=== PATIENT | female | born 1995 | race Two or more races ===

== ENCOUNTER 2018-02-15 17:56 | Emergency (ER) | payer SELFPAY ==
[2018-02-15] MEDS ORDERED: NS 1,000 ML IV ONE ×2 (18:07→19:04)
--- NOTE | 2018-02-15 18:10 | EDPHY ---
H & P Stated Complaint: Lightheaded then passed out;vag bleeding x 2months Time Seen by Provider: 02/15/18 18:04 HPI/ROS: CHIEF COMPLAINT: Syncope HISTORY OF PRESENT ILLNESS: The patient presents to the ED after an episode of syncope. The patient apparently was standing in the shower this occurred. The patient does report a history of dysmenorrhea. She did have a history of anemia in the past but has been off of a iron for the past year. The patient denies any pleuritic chest pain, asymmetric calf pain or swelling or additional traumatic complaints. She did chipped tooth as a result of her syncopal episode. REVIEW OF SYSTEMS: A comprehensive 10 point review of systems is otherwise negative aside from elements mentioned in the history of present illness. Source: Patient Exam Limitations: No limitations - Personal History LMP (Females 10-55): Now Current Tetanus Diphtheria and Acellular Pertussis (TDAP): Yes - Medical/Surgical History Hx Asthma: No Hx Chronic Respiratory Disease: No Hx Diabetes: No Hx Cardiac Disease: No Hx Renal Disease: No Hx Cirrhosis: No Hx Alcoholism: No Hx HIV/AIDS: No Hx Splenectomy or Spleen Trauma: No - Social History Smoking Status: Never smoked - Physical Exam Exam: General Appearance: Alert, no distress Eyes: Pupils equal and round no pallor or injection ENT, Mouth: Mucous membranes moist, small chip fracture Respiratory: There are no retractions, lungs are clear to auscultation Cardiovascular: Regular rate and rhythm Gastrointestinal: Abdomen is soft and nontender, no masses, bowel sounds normal Neurological: A&O, normal motor function, normal sensory exam, normal cranial nerves Skin: Warm and dry, no rashes Musculoskeletal: Neck is supple nontender Extremities: symmetrical, full range of motion Constitutional: Initial Vital Signs Temperature (C) 36.9 C 02/15/18 18:00 Heart Rate 99 02/15/18 18:00 Respiratory Rate 18 02/15/18 18:00 Blood Pressure 108/60 02/15/18 18:00 O2 Sat (%) 99 02/15/18 18:00 O2 Delivery Mode Room Air Allergies/Adverse Reactions: No Known Allergies Allergy (Verified 02/15/18 18:01) Home Medications: Medication Instructions Recorded No Medications [No Known] 1 ea MISC 05/01/13 Ferrous Sulfate [Iron] 325 mg PO BID #60 tablet 02/15/18 Medical Decision Making - Diagnostics EKG Interpretation: EKG: Complete interpretation has been separately recorded in the [facility] archive. Summary impression: Sinus rhythm, 88 ED Course/Re-evaluation: The patient presents to the ED after syncopal episode which is most consistent with vasovagal type episode. The patient does have a history of anemia in the past. She has not seen a primary care provider for evaluation of this condition over a year. Patient was noted to have a hematocrit of 24 in the emergency department. The patient's test is negative. Her EKG demonstrates no evidence of ischemia. She received 1 L of IV fluid in the ED. The patient will be restarted on iron. She is advised [facility] a [facility]he[facility] of her anemia in the next 2-3 weeks. Patient has no clinical symptoms suggestive of a PE or DVT. Differential Diagnosis: Differential diagnosis considered includes arrhythmia, vasovagal episode, critical anemia, ectopic , metabolic abnormality - Data Points Laboratory Results: Laboratory Results 02/15/18 18:20 02/15/18 18:20 02/15/18 02/15/18 02/15/18 18:20 18:20 18:20 WBC 10.47 10^3/uL H 10^3/uL (3.80-9.50) RBC 3.50 10^6/uL L 10^6/uL (4.18-5.33) Hgb 7.3 g/dL L g/dL (12.6-16.3) Hct 24.9 % L % (38.0-47.0) MCV 71.1 fL L fL (81.5-99.8) MCH 20.9 pg L pg (27.9-34.1) MCHC 29.3 g/dL L g/dL (32.4-36.7) RDW 15.2 % % (11.5-15.2) Plt Count 450 10^3/uL H 10^3/uL (150-400) MPV 9.8 fL fL (8.7-11.7) Neut % (Auto) 79.3 % H % (39.3-74.2) Lymph % (Auto) 13.9 % L % (15.0-45.0) Jackson % (Auto) 5.7 % % (4.5-13.0) Eos % (Auto) 0.1 % L % (0.6-7.6) Baso % (Auto) 0.7 % % (0.3-1.7) Nucleat RBC Rel Count 0.0 % % (0.0-0.2) Absolute Neuts (auto) 8.30 10^3/uL H 10^3/uL (1.70-6.50) Absolute Lymphs (auto) 1.46 10^3/uL 10^3/uL (1.00-3.00) Absolute Monos (auto) 0.60 10^3/uL 10^3/uL (0.30-0.80) Absolute Eos (auto) 0.01 10^3/uL L 10^3/uL (0.03-0.40) Absolute Basos (auto) 0.07 10^3/uL 10^3/uL (0.02-0.10) Absolute Nucleated RBC 0.00 10^3/uL 10^3/uL (0-0.01) Immature Gran % 0.3 % % (0.0-1.1) Immature Gran # 0.03 10^3/uL 10^3/uL (0.00-0.10) Sodium 143 mEq/L mEq/L (135-145) Potassium 3.8 mEq/L mEq/L (3.5-5.2) Chloride 106 mEq/L mEq/L (97-110) Carbon Dioxide 27 mEq/l mEq/l (22-31) Anion Gap 10 mEq/L mEq/L (8-16) BUN 12 mg/dL mg/dL (7-23) Creatinine 0.8 mg/dL mg/dL (0.6-1.0) Estimated GFR > 60 Glucose 95 mg/dL mg/dL (70-100) Calcium 9.4 mg/dL mg/dL (8.5-10.4) Beta HCG, Qual NEGATIVE Medications Given: Discontinued Medications Sodium Chloride (Ns) 1,000 mls @ 0 mls/hr IV EDNOW ONE; Wide Open PRN Reason: Protocol Stop: 02/15/18 18:08 Last Admin: 02/15/18 18:23 Dose: 1,000 mls Departure - Departure Disposition: Home, Routine, Self-Care Clinical Impression: Anemia, Vasovagal episode Condition: Good Instructions: Anemia (ED), Syncope (ED) Additional Instructions: 1. Please resume taking iron as prescribed in the ED. 2. Please follow up with [facility] for a recheck of your blood count in the next 3-4 weeks. 3. Return to the ED for any worsening symptoms, chest pain, difficulty breathing or other concerns. Referrals: [facility],. [Clinic] - As per Instructions Prescriptions: Ferrous Sulfate [Iron] 325 mg PO BID #60 tablet
[2018-02-15 18:26] LABS: PLATELET COUNT 450 10^3/uL (150-400)
--- NOTE | 2018-02-15 18:48 | CPEKG ---
Heart Rate: 88 RR Interval: 682 P-R Interval: 132 QRSD Interval: 86 QT Interval: 352 QTC Interval: 426 P Stanley: 64 QRS Stanley: 58 T Wave Stanley: 33 EKG Severity - NORMAL ECG - EKG Impression: SINUS RHYTHM Electronically Signed By: Christian Conway 15-Feb-2018 18:56:18
[2018-02-15 20:27] VITALS: BP 90/75
== END 2018-02-15 20:27 | disposition home or self-care (01) ==
DX: R55 Syncope and collapse (principal); D64.9 Anemia, unspecified; E86.9 Volume depletion, unspecified